=== PATIENT | male | born 1950 | race Caucasian/White ===

== ENCOUNTER 2021-05-24 11:24 | Inpatient (IN) | payer MEDICARE, BC ==
[~2021-05-24] VITALS: Ht 180.3 cm; Wt 103.5 kg
--- NOTE | 2021-05-24 15:40 | EKG ---
[facility] [address] [facility] [address] [place] [address] Signed Sinus rhythm with 1st degree AV block with premature atrial complexes Right bundle branch block Abnormal ECG No previous ECGs available Confirmed by GERALD ALSTON MD ([id number]) on 05/24/2021 3:39:39 PM Electronically Signed By: GERALD ALSTON MD 05/24/21 1540 PATIENT NAME: CINDI FONSECA Electrocardiogram DATE OF : 48 PHYSICIAN: GERALD ALSTON MD REPORT #: [id number] REPORT IS CONFIDENTIAL AND NOT TO BE RELEASED WITHOUT AUTHORIZATION
[2021-05-24] MEDS ORDERED: ATORVASTATIN CA40 MG PO (16:53)
[2021-05-24] MEDS ORDERED: ALLOPURINOL100 MG PO (16:53)
[2021-05-24] MEDS ORDERED: HYDRALAZINE HC100 MG PO (16:56)
[2021-05-24] MEDS ORDERED: ISOSORBIDE MONO30 MG PO (17:05)
[2021-05-24] MEDS ORDERED: LISINOPRIL5 MG PO (17:05)
[2021-05-24] MEDS ORDERED: INSULIN LI100 UNIT/2 SUB-Q (17:10)
[2021-05-24] MEDS ORDERED: LANTUS SOL100 UNIT/1 SUB-Q (17:11)
[2021-05-24] MEDS ORDERED: DOXYCYCLINE MO100 MG PO (17:13)
[2021-05-24] MEDS ORDERED: ALLERGY RELIEF10 M1 PO (17:13)
[2021-05-24] MEDS ORDERED: VITAMIN D325 MCG PO (17:19)
--- NOTE | 2021-05-24 18:42 | NUR ---
PATIENT ARRIVED FROM ED VIA STRETCHER. PATIENT IS WEAK AND UNABLE TO TRANSFER HIMSELF OVER. 4 RN IN TO ASSIST IN TRANSFER. PATIENT TRANSFERED AND REPOSITIONED FOR COMFORT. JAMAAL ROYAL STARTED IV IN RIGHT AC. PATIENT BREATH SOUNDS CLEAR. BOWEL TONES ACTIVE. PATIENT NOTED TO HAVE SEVERAL AREAS OF BULLOUS PEMPHIGOID ON RIGHT CHÁVEZ AND LEFT WRIST. PATIENT ALSO NOTED TO HAVE A SMALL EXCORIATED DIME SIZE AREA INBETWEEN GLUTEAL FOLDS. URINARY CATHETER IN PLACE. WILL MONITOR OUTPUT. MEDICATIONS GIVEN. PATIENT EATING DINNER. WILL CONTINUE TO CLOSELY MONITOR.
--- NOTE | 2021-05-24 19:46 | NUR ---
REPORT RECEIVED FROM SAURAV RN, WILL CONTINUE PLAN OF CARE.
--- NOTE | 2021-05-24 20:45 | NUR ---
PT SITTING UP IN BED AT THIS TIME ON ROOM AIR, IVF INFUSING AT ORDERED RATE. PT ALERT AND ORIENTED X 4 AND DENIES HAVING ANY YASMEEN AT THIS TIME. PT REPORTS MILD SHORTNESS OF BREATH AT THIS TIME, SPO2 100%. PT ASSESSMENT COMPLETED AT THIS TIME. PT HEART RATE REGULAR/DISTANT. LUNGS CLEAR IN UPPER LOBES AND CLEAR/DIMINISHED IN THE BASES BILATERALLY, BOWEL TONES ACTIVE. PT DENIES PAIN WHEN ABDOMEN IS PALPLATED, ABDOMEN SOFT. RADIAL PULSES STRONG, PEDAL PULSES +1, PT DENIES NUMBNESS OR TINGLING TO EXTREMITIES WITH THE EXCEPTION OF HIS PINKY FINGER WHICH HE STATES IS AT BASELINE. OPEN WOUND/BLISTER PRESENT ON PT'S RIGHT CHÁVEZ WHICH HE STATES IS FROM BULLOUS PEMPHEGOID, REDNESS ON LEFT WRIST WHICH PT STATES IS ALSO FROM THIS CONDITION (SEE CHART). AFTER ASSESSMENT PT REPORTS NO NEEDS. CBG ASSESSED AND WAS 172, 1 UNIT OF INSULIN ADMINISTERED PER SLIDING SCALE (SEE MAR). PT REPORTS NO FURTHER NEEDS AND STATES HE IS GOING TO SLEEP. PT NOW HAS HIS HOME CPAP ON, CALL LIGHT IN REACH, BED IN LOWEST POSITION, IVF INFUSING, WILL CONTINUE PLAN OF CARE.
--- NOTE | 2021-05-24 21:28 | NUR ---
PT LAYING IN BED AWAKE, HOME CPAP ON, SPO2 100%. PT ALERT AND ORIENTED AND REPORTS NO NEEDS. BLOOD PRESSURE CUFF READJUSTED AND VITALS TAKEN AT THIS TIME. PT DENIES ANY LIGHTHEADEDNESS OR DIZZYNESS WHEN ASKED. NO FURHTER NEEDS REPORTED, PT IN NO APPARENT DISTRESS, WILL CONTINUE PLAN OF CARE. CALL LIGHT IN REACH, BED IN LWOEST POSITION, IVF INFUSING ORDERED.
--- NOTE | 2021-05-24 22:10 | NUR ---
PT LAYING IN BED AWAKE ON HIS HOME CPAP, SPO2 100%. IVF INFUSING ORDERED. PT URINE OUTPUT ASSESSED FOR THE HOUR AND WAS 60ML CLEAR YELLOW URINE. PT BP REASSESSED RECORDED MAP WAS BELOW 65MMHG. BP 94/65 (76) PT DENIES LIGHTHEADEDNESS OR DIZZYNESS. PT REPORTS NO FURTHER NEEDS AT THIS TIME WHEN ASKED AND IS RESTING IN BED. CUSTOMER SERVICE REPRESENTATIVE TEACHER NOW IN ROOM TO DRAW 2200 LABS, WILL CONTINUE PLAN OF CARE. CALL LIGHT IN REACH, BED IN LOWEST POSITION.
--- NOTE | 2021-05-24 23:10 | NUR ---
PT LAYING IN BED AWAKE AND ALERT ON HIS HOME CPAP. SPO2 99%. IVF INFUSING ORDERED. AMAYA EMPTIED OF 48ML CLEAR YELLOW URINE FOR THE HOUR. PT REPORTS NO FURTHER NEEDS WHEN ASKED AND REMAINS RESTING IN BED. DR. ALSTON UPDATED AFTERWARDS ON PT'S VITALS AND URINE OUTPUT, WILL NOTIFY DR. ALSTON IF SYSTOLIC BLOOD PRESSURE FALLS BELOW 90 MMHG ORDERED. WILL CONTINUE PLAN OF CARE.
--- NOTE | 2021-05-25 00:15 | NUR ---
PT LAYING IN BED SLEEEPING AND AWOKE EASILY. IVF INFUSING ORDERED, PT ON HIS HOME CPAP. PT REQUESTED WARM BLANKETS WHICH WERE PROVIDED. VITALS THEN TAKEN AND ASSESSMENT COMPLETED (SEE CHART). PT REPORTS NO PAIN OR SHORTNESS OF BREATH WHEN ASKED AT THIS TIME. AMAYA BAG EMPTIED OF 49ML CLEAR YELLOW URINE FOR THE HOUR. PT REPORTS NO FURTHER NEEDS WHEN ASKED, WILL CONTINUE PLAN OF CARE. CALL LIGHT IN REACH, BED IN LOWEST POSITION.
--- NOTE | 2021-05-25 01:08 | NUR ---
IV PUMP ALARMING, PT LAYING IN BED SLEEPING ON HIS CPAP. IV PUMP RESTARTED, IVF INFUSING ORDERED. URINE OUTPUT 45ML FOR THE HOUR. PT AWOKE DURING THIS TIME AND REPORTED NO NEEDS WHEN ASKED. PT RETURNED BACK TO SLEEP. CALL LIGHT IN REACH, BED IN LOWEST POSITION, WILL CONTINUE PLAN OF CARE.
--- NOTE | 2021-05-25 02:06 | NUR ---
PT LAYING IN BED SLEEPING ON HIS CPAP. IVF INFUSING ORDERED. WHILE ASSESSING URINE OUTPUT PT AWOEK. 40ML OF CLEAR YELLOW URINE RECORDED FOR THE HOUR. PT REPORTS NO NEEDS AT THIS TIME AND DENIES LIGHTHEADEDNESS OR DIZZYNESS WHEN ASKED. PT RETURNED BACK TO SLEEP, CALL LIGHT IN REACH, BED IN LOWEST POSITON, WILL CONTINUE PLAN OF CARE.
--- NOTE | 2021-05-25 04:10 | NUR ---
PT LAYING IN BED AWAKE AND ALERT ON HIS CPAP. PT IVF INFUSING ORDERED. PT REPORTS NO PAIN, NO LIGHTHEADEDNESS, AND DENIES SHORTNESS OF BREATH. VITALS TAKEN AND PT ASSESSED (SEE CHART). PT LUNGS CLEAR IN UPPER LOBES, DIMINISHED IN THE BASES. HEART RATE IRREGULAR, ACTIVE BOWEL TONES PRESENT. +2 RADIAL PULSES AND +1 PEDAL. PT DENIES NUMBNESS OR TINGLING TO EXTREMITIES. PT AMAYA CHECKED AND HAD 35ML CLEAR YELLOW URINE. PT REPORTS NO FURTHER NEEDS WHEN ASKED AT THIS TIME, WILL CONTINUE PLAN OF CARE. CALL LIGHT IN REACH, BED IN LOWEST POSITION.
--- NOTE | 2021-05-25 06:25 | NUR ---
PT ALERT AND ORIENTED AT THIS TIME ON HIS HOME CPAP. IVF INFUSING ORDERED. PT UO FOR THE HOUR ASSESSED AND WAS 29ML CLEAR YELLOW URINE. PT REMOVED CPAP AT THIS TIME AND STATED HE NEEDED TO HAVE A BM. PT ASSISTED UP TO THE BEDSIDE COMMODE 1 PERSON ASSIST. HR NOTED TO INCREASE TO THE 120-130'S, PT STATED HE FELT WEAK AND LIGHTHEADED. PT ABLE TO HAVE A LIQUID BM AND WAS ASSISTED BACK TO THE BED. PT NOW RESTING IN BED AND REPORTS NO FURTHER NEEDS. PT IN BED AWAKE AND ALERT, CPAP AT THE BEDSIDE. CALL LIGHT IN REACH, BED IN LOWEST POSITION, IVF INFUSING ORDERED, WILL CONTINUE PLAN OF CARE.
--- NOTE | 2021-05-25 06:30 | NUR ---
DR. ALSTON NOTIFIED OF PT'S URINE OUTPUT, VITALS, AND PT'S INCREASED HEART RATE/LIGHTHEADNESS DURING EXERTION TO THE BEDSIDE COMMODE. NEW ORDERS GIVEN TO ADMINISTER 500ML OF NORMAL SALINE OVER 1 HOUR. WILL CONTINUE PLAN OF CARE.
--- NOTE | 2021-05-25 06:50 | NUR ---
PT LAYING IN BED AWAKE AND ALERT, IVF INFUSING ORDERED. NORMAL SALINE STARTED ORDERED (SEE MAR) AND NOW INFUSING. PT REPORTS NO NEEDS AT THIS TIME WHEN ASKED AND REMAINS RESTING IN BED. CALL LIGHT IN REACH, BED IN LOWEST POSITION, WILL CONTINUE PLAN OF CARE.
--- NOTE | 2021-05-25 08:30 | NUR ---
PATIENT AWAKE IN BED, VITALS AND I&OS CHARTED. EVELIN WITH P/T IN TO ASSIST WITH 2PA TRANSFER TO CHAIR FROM BED. PATIENT WAS "SHAKEY" BUT TOLERATED THE TRANSFER WELL. WARM BLANKET PROVIDED AND LINENS CHANGED. FACE AND HANDS WASHED AND PATIENT EATING BREAKFSAT AT THIS TIME. CALL LIGHTIN EASY REACH
--- NOTE | 2021-05-25 08:30 | NUR ---
Spoke with Luiz. He states he lives in a house without steps with his . He is weak and having difficulty walking following starting metho trexate. He would like to dc to home, but is unsure if this will be pos sible as he is having difficulty walking. He will work with PT. May need a walker, will check with PT.
--- NOTE | 2021-05-25 08:45 | NUR ---
PATIENT RESTING IN BED. PATIENT BREATH SOUNDS CLEAR. PATIENT WORE CPAP OVER NIGHT WITH NO ISSUES. BOWEL TONES ACTIVE. PATIENT DENIES N/V AT THIS TIME. PULSES ARE WEAK IN BILATERAL FEET AND DOPPLER USED FOR CONFIRMATION. PATIENTS SCAB ON CHÁVEZ WAS BLEEDING THIS AM AND COLLET GLUER PLACED A DRESSING. PATIENT IS ALERT AND PLEASANT. ALL QUESTIONS ANSWERED. WILL CONTINUE TO CLOSELY MONITOR.
--- NOTE | 2021-05-25 09:45 | NUR ---
PATIENT HAD AN EPISODE OF NAUSEA AND VOMITING. GAVE PRN DOSE OF ZOFRAN. PATIENT ATE APROX 50% OF MEAL PRIOR TO THIS. WILL CONTINUE TO CLOSELY MONITOR.
--- NOTE | 2021-05-25 10:00 | NUR ---
PT REQUESTS ASSISTANCE. BACK TO BED. THIS RN TO ROOM TO ASSIT. 2 PERSON ASSIST TO STAND AND PIVOT BACK TO BED. PT TREMBLES WHILE STANDING, IMPULSIVE AND STATES HE FEELS TOO WEAK. QUICK TO SIT BACK DOWN. PT ASSISTED INTO BED. NOTED THAT PTS URINE OUTPUT WAS ONLY 6ML OVER THE LAST HOUR. BICARB INFUSION COMPLETE. IV SALINE LOCKED AT THIS TIME. DR. ALSTON UPDATED REGARING URINE OUTPUT AND IV FLUIDS, AWAITING NEW ORDERS. NO ADDITIONAL REQUESTS OR COMPLAINTS AT THIS TIME. CALL LIGHT WITHIN REACH. BED RAILS UP. PTS PRIMARY RN UPDATED.
--- NOTE | 2021-05-25 10:17 | NUR ---
VITALS CHARTED. AMAYA EMPTIED-RN NOTIFIED OF LOW URINE OUTPUT. CALL LIGHT AND PERSONAL ITEMS IN EASY REACH
[2021-05-25] MEDS ORDERED: FOLIC ACID1 MG PO (10:20)
--- NOTE | 2021-05-25 10:20 | NUR ---
PATIENT URINE OUTPUT LOW. NEETA ROYAL UPDATED MD ALSTON. NO NEW ORDERS AT THIS TIME. MD WILL BE OVER TO ASSESS PATIENT FOR UPDATED PLAN OF CARE. WILL CONTINUE TO CLOSELY MONITOR.
[2021-05-25] MEDS ORDERED: METHOTREXATE2.5 MG PO (10:21)
[2021-05-25] MEDS ORDERED: BETAMETHASONE D15 G1 TOP (10:22)
[2021-05-25] MEDS ORDERED: PREDNISONE10 MG PO (10:23)
--- NOTE | 2021-05-25 11:19 | NUR ---
PATIENT IS BACK IN BED RESTING AT THIS TIME. PATIENT STATES NAUSEA IS BETTER WITH PRN ZOFRAN. WILL CONTINUE TO CLOSELY MONITOR.
--- NOTE | 2021-05-25 12:30 | NUR ---
MD ALSTON IN TO SEE PATIENT. MD ALSTON UNRINE OUTPUT. WILL STAT ANTHER 500ML BOLUS AND A BICARB GTT. ALL QUESTIONS ANSWERED. PATIENTS ASSESSMENT COMPLETED AND REMAINS UNCHANGED FROM PRIOR ASSESSMENT. NO OTHER NEEDS AT THIS TIME. PATIENT HAS POOR APPETITE AND TALKED WITH PATIENT ABOUT HAVING AN ENSURE WITH HIS DINNER. PATIENT DENIES NAUSEA. WILL CONTINUE TO CLOSELY MONITOR.
--- NOTE | 2021-05-25 13:30 | NUR ---
NEW IV STARTED BY STUDENT NURSE MIRNA. PATIENT TOELRATED WELL. PATIENT NOW RESTING AND PLANS TO TAKE A NAP AT THIS TIME. CPAP IN PLACE. WILL ENCOURAGE REST AT THIS TIME.
--- NOTE | 2021-05-25 13:42 | NUR ---
IV PUMP ALARMING, IV FLUID BOLUS COMPLETE. RIGHT AC IV FLUSHED AND SALINE LOCKED PER PROTOCOL. PT HAS CPAP IN PLACE AND CONTINUES TO REQUEST TIME TO REST. PT ENCOUARGED TO CONTINUE RESTING. AMAYA CATHETER EMPTIED. NO ADDITIONAL REQUESTS OR COMPLAINTS. PS PRIMARY RN UPDATED. CALL LIGHT WITHIN REACH. BED RAILS UP.
--- NOTE | 2021-05-25 16:24 | NUR ---
PATIENT RESTING IN BED. PATIENT WAS UP WITH PHYSICAL THERAPY AND TOLERATED WELL. PATIENT RESTING IN BED. PATIENT ASSESSMENT COMPLETED AND REMAINS UNCHANGED. WILL CONTINUE TO CLOSELY MONITOR.
[2021-05-25] MEDS ORDERED: VENTOLIN HFA18 GM INH (16:48)
--- NOTE | 2021-05-25 16:48 | NUR ---
MED REC COMPLETE
--- NOTE | 2021-05-25 18:00 | NUR ---
PATIENT UP WITH ELLIE ROYAL TO USE CAMMODE. PATIENT BACK TO BED AND TOLERATED WELL. MEDICATIONS DONE. PATIENT VISITING WITH THIS RN AND STATES "I AM FEELING MUCH BETTER THIS EVENING". WILL CONTINUE TO CLOSELY MONITOR.
--- NOTE | 2021-05-25 20:30 | NUR ---
RN NOTED PATIENT HAVING 3-5 SECOND RUNS OF RVR ON MONITOR. PATIENT RESTING IN BED EYES CLOSED. MD NOTIFIED. EKG ORDERED. RT CALLED BUT CURRENTLY UNAVAILABLE. THIS RN AND ALISA ROYAL CAPTURED AN EKG. ARRIVED AT BEDSIDE. 5 MG LOPRESSOR IV ADMINISTERED PER VERBAL ORDER. PATIENT DENIED PALPITATIONS OR OTHER COMPLAINS. BP STABLE. HIGHEST HR NOTED 148, DOWN TO 80'S A FIB. BP STABLE. ADD ON MAG ORDERED. PATIENT TO RECEIVE 3G MAG IV AND START 5 MG Q6H LOPRESSOR IV. PATIENT VERBALIZED UNDERSTANDING OF THIS EVENT.
--- NOTE | 2021-05-25 21:00 | NUR ---
PATIENT PROVIDED WITH SCHEDULED ALMA AND INSULIN PER SLIDING SCALE. PATIENT DENIES ANY CONCERNS. NO PAIN OR GI UPSET. IV SITES WNL, IV FLUIDS PER ORDER. AMAYA CARE DONE. SOME FLAKING SKIN NOTED AROUND THE HEAD OF THE PENIS. PATIENT REPORTS THIS IS NORMAL FOR HIM. NOT PAINFUL. OUTPUT IS QS. PATIENT HAS HOME CPAP IN PLACE. VS STABLE.
--- NOTE | 2021-05-26 00:14 | NUR ---
PATIENT CONTINUES TO HAVE SMALL RUNS OF RVR UP TO 130'S. RESTING HR 85-95 AFIB. PATIENT HAS WOKE ONCE AND BEEN MILDLY CONFUSED, THINKING HE WAS AT HOME. PATIENT EASILY REORIENTED AND CALM. VS STABLE. CPAP IN PLACE.
--- NOTE | 2021-05-26 03:50 | NUR ---
PATIENT UP TO BS FOR BM. SAMPLE COLLECTED. PATIENT TOLERATED WELL. TRANSFERED WITH MINIMAL ASSIST WITH FWW.
--- NOTE | 2021-05-26 06:36 | NUR ---
PATIENT AWAKE FOR THE DAY NOW. AMAYA EMPTIED. VS STABLE. IV FLUIDS PER ORDER, SITE WNL. PATIENT DENIED ANY CONCERNS. HR HAS BEEN MORE CONSISTENT IN 90-110 RANGE, AFIB WITH WIDE QRS.
--- NOTE | 2021-05-26 07:30 | NUR ---
PATIENT SHIFT REPORT RECIEVED FROM PROTOTYPE MODEL MAKER RN. PATIENT RESTING IN BED. REVIEWED PLAN OF CARE WITH PATIENT. NO QUESTIONS AT THIS TIME. WILL CONTINUE TO CLOSELY MONITOR.
--- NOTE | 2021-05-26 08:30 | NUR ---
STUDENT NURSE ELAYNE IN TO DO PATIENTS AM ASSESSMENT AT 0800. PATIENT IS RESTING IN BED AT THIS TIME. THIS RN IN TO FOLLOW-UP ASSESSMENT. PATIENTS BREATH SOUNDS ARE CLEAR, BOWEL TONES ACTIVE, PATIENT DENIES NAUSEA THIS MORNING. PATIENT HAD A BM DURING SLUDGE FILTRATION ATTENDANT AND A SAMPLE WAS SENT TO THE LAB. PATIENTS PULSES ARE STONG ON RADIALS AND DOPPLER ON PEDAL. BILATERAL LOWER EXTREMITY EDEMA. PATIENT HAS A AMAYA PRESENT WITH CLEAR YELLOW URINE. HELD MORNING IV METOPROLOL PER MDREDDY. MD ALSTON IN TO SEE PATIENT. WILL DC AMAYA CATHETER. FINSIH IV BICARB AND THEN SWITCH TO LR. SEE NEW ORDERS. WILL CONTINUE TO CLOSELY MONITOR.
--- NOTE | 2021-05-26 11:31 | NUR ---
REMOVED PATIENTS AMAYA PER MD MICHELLE ORDER. PATIENT TOELRATED WELL WITH NO ISSUES. PATIENTS IS AT THE BEDSIDE. PATIENT REMOVED HOME HEART MONITOR HE WAS WEARING AND THEY WILL PACKAGE IT AND PUT IT IN THE MAIL. NO FURTHER QUESTIONS AT THIS TIME. WILL CONTINUE TO CLOSELY MONITOR.
--- NOTE | 2021-05-26 12:30 | NUR ---
DENNY JIMENES IN VISITING WITH PT. WILL RETURN
--- NOTE | 2021-05-26 12:47 | NUR ---
PATIENT ASSISTED UP TO THE CAMMODE. PATIENT IS STRONGER TODAY AND A 1 PERSON ASSIST. PATIENT URINATED AND THEN BACK TO BED. WILL GET PATIENT A BEDBATH TODAY AFTER HE WORKS WITH PHYSICAL THERAPY. PATIENTS ASSESSMENT REMAINS UNCHENGED FROM PRIOR ASSESSMENT. WILL CONTINUE TO CLOSELY MONITOR.
--- NOTE | 2021-05-26 13:16 | EKG ---
[facility] [address] [place], [place] [address] Signed Atrial fibrillation with rapid ventricular response Right bundle branch block Abnormal ECG No previous ECGs available Confirmed by GERALD ALSTON MD ([id number]) on 05/26/2021 1:15:56 PM Electronically Signed By: GERALD ALSTON MD 05/26/21 1316 PATIENT NAME: CINDI FONSECA Electrocardiogram DATE OF : 48 PHYSICIAN: GERALD ALSTON MD REPORT #: [id number] REPORT IS CONFIDENTIAL AND NOT TO BE RELEASED WITHOUT AUTHORIZATION
--- NOTE | 2021-05-26 14:57 | NUR ---
REPORT RECEIVED FROM LELE VASQUEZ. AWAITING PTS ARRIVAL TO MED/SURG.
--- NOTE | 2021-05-26 15:00 | NUR ---
REPORT GIVEN TO NEETA ROYAL. UPDATED OF CURRENT PLAN OF CARE. PATIENT HAS VOIDED SINCE URINE CATHETER REMOVED. PATIENT UP AND WALKED WITH PHYSICAL THERAPY AND FEELS MUCH STRONGER TODAY. PATIENT IS ALERT AND ORIENTED WITH OCCASIONAL FORGET-FULLNESS. PATIENT WILL BE SENT ON HEART MONITOR FOR OBSERVATION OF NEW ONSET A.FIB RVR. PATIENT TO FINISH BAG OF BICAR IV THEN SWITCH TO LR ONCE BAG IS FINISIHED. PATIENT UPDATED ON PLAN AND NO FURTHER QUESTIONS AT THIS TIME.
--- NOTE | 2021-05-26 15:10 | NUR ---
PATIENT TRANSFERED TO THE MEDICAL UNIT FROM 110 WITH CHARGE NURSE LELE CAPPS. ALL BELONGINGS GATHERED AND SENT WITH PATIENT. NO OTHER NEEDS AT THIS TIME. UPDATED THAT PATIENT WOULD REALLY LIKE TO TAKE A SHOWER TODAY IF POSSIBLE.
--- NOTE | 2021-05-26 16:20 | NUR ---
PT FINISHED WITH SHOWER AND UP TO CHAIR. 1 PERSON STAND BY ASSIST WITH AMBULATION FROM SHOWER TO CHAIR. PT REPORTS 3/10 PAIN IN HIS RIGHT LEG AND LEFT HAND WOUND FROM SKIN DISEASE. PT DENIES NEED FOR PAIN MEDICATION. PT DENIES OTHER PAINS AND DENIES NAUSEA. PT ALERT AND OREINTED. LUNG SOUNDS CLEAR. IRREGULAR HEART RYTHEM CONTINUES WITH AFIB RYTHEM NOTED ON TELEMETRY MONTIORING, HEART RATE IN THE 70'S. BOWEL TONES ACTIVE. MONITORING KIDNEY FUNCTION LABS, PT VOIDING QUANITY SUFFICENT. ALLEVYN TO RIGHT CHÁVEZ CHANGED BY LELE CAPPS AFTER SHOWER, C/D/I AT THIS TIME. SCAB TO LEFT HAND REMAINS INTACT, PT REPORTS THIS WOULD "SHOULD HEAL UP FINE." PT DECLINES BANDAGE TO LEFT HAND. NO DRAINAGE NOTED. PT DENIES ADDITIONAL REQUESTS OR COMPLAINTS. CALL LIGHT WITHIN REACH. PT REMAINS UP TO CHAIR.
--- NOTE | 2021-05-26 17:20 | NUR ---
THIS RN TO ROOM TO CHECK ON PT. PT REMAINS UP TO CHAIR, EATING DINNER. MEDICATIONS GIVEN. PT DENIES ADDITIONAL REQUESTS OR COMPLAINTS. CALL LIGHT WITHIN REACH BED RAILS UP.
--- NOTE | 2021-05-26 17:49 | NUR ---
PT TRANSFERED FROM CCU THIS SHIFT, HERE FOR MARIPOSA. PT UP WITH 1 PERSON STAND BY ASSIST TO SHOWER AND CHAIR THIS SHIFT. PT TOELRTING 60G CARB DIET WITH BLOOD SUGAR CHECKS AT MEALS AND HS, SLIDING SCALE INSULIN GIVEN. TELEMETRY MONITORING IN PLACE AFIB RVR WAS DETECTED LAST NIGHT. MONITOR SHOWS AFIB RYTHEM WITH HR IN THE 70'S THIS SHIFT. DIARRHEA CONTINUES, SAMPLE SENT TO LAB WHILE PT WAS IN CCU. FOELY CATHETER DC'D THIS SHIFT, PT VOIDING QUANTITY SUFFICIENT. CPAP USED WHILE PT IS RESTING/SLEEPING. DRESSING TO RIGHT CHÁVEZ WOUND/SKIN DISEASE CHANGED AFTER SHOWER THIS SHIFT. PT USES CALL LIGHT AND MAKES NEEDS KNOWN.
--- NOTE | 2021-05-26 18:25 | NUR ---
THIS RN TO ROOM TO CHECK ON PT. PT UP TO CHAIR. PT DENIES PAIN AND NAUSEA. VITAL SIGNS STABLE. PT DENIES REQUESTS OR COMPLAINTS AT THIS TIME BUT STATES TO "TELL THE DOCTOR I'M FEELING A MILLION TIMES BETTER." CALL LIGHT WITHIN REACH.
--- NOTE | 2021-05-26 19:15 | NUR ---
SHIFT REPORT RECEIVED FROM SAURAV SANTACRUZ AT BEDSIDE. pt AWAKE AND RESTING IN CHAIR. IV FLUIDS INFUSING DIRECTED, IV SITE REMAINS WNL. pt DENIES NEEDS OR CONCERNS, CALL LIGHT IN REACH AND BOARD UPDATED.
--- NOTE | 2021-05-26 20:02 | NUR ---
CLARIFIED FLUIDS ORDERS WITH DR GARRISON VIA TELEPHONE. TELEPHONE ORDER READ BACK AND CLARIFIED THAT pt IS TO RECEIVE LR AT THE ORDERED 75MLS/HR- CONTINUOUSLY.
--- NOTE | 2021-05-26 20:19 | NUR ---
PT UNPLUGGED IV AND WALKED OVER TO DOOR, ENTERED ROOM AND PT STATES HE IS GOING TO BED AND JUST TRYING TO TURN THE LIGHTS OFF. PT STATES HE IS STEADY ON HIS FEET AND DENIES DIZZINESS. WATCHED PT GET IN BED AND PROVIDED WARM BLANKETS FOR HIM. CALL LIGHT IS CLOSE AND PT DENIES FURTHER NEEDS. IV IS INFUSING FINE.
--- NOTE | 2021-05-26 21:25 | NUR ---
ASSISTED PT BACK TO BED FROM RESTROOM. PT STATES HE HAD TO GO URGENTLY AND BARELY MADE IT. HE DENIES FURTHER NEEDS. CALL LIGHT IS CLOSE.
--- NOTE | 2021-05-26 22:40 | NUR ---
ASSESSMENT COMPLETE, SCHEDULED MEDS GIVEN (SEE EMAR). pt A/OX4, BUT HAS SOME GENERALIZED WEAKNESS. BED ALARM TO ENSURE SAFETY, EDUCATION PROVIDED. pt VERBALIZED UNDERSTANDING. IV SITES X2 BOTH WNL. IV BICARB COMPLETE, LR NOW INFUSING DIRECTED. pt DENIES PAIN AND NAUSEA, BOWEL TONES ACTIVE. NO ADDITIONAL NEEDS, CALL LIGHT IN REACH.
--- NOTE | 2021-05-26 23:06 | NUR ---
CALL LIGHT ANSWERED, pt UP TO VOID- SBA WITH AMBULATION. pt VOIDED 300MLS LIGHT YELLOW URINE. pt BACK IN BED WITH BED ALARM ON FOR SAFETY. pt THEN STATES, "HAS SHE BEEN CALLING OUT 121 FOR ABOUT AN HOUR", pt POINTING AT HALINA BONILLA AT RN STATION. pt EDUCATION HIS ROOM IS NEAR RN STATION AND STAFF ARE CARING FOR pts AND ANSWERING CALL LIGHTS. ORINETATION ASSESSED, pt REMAINS ORIENTED TO SELF, PLACE, DATE, AND TIME. WILL MONITOR. CALL LIGHT IN REACH.
--- NOTE | 2021-05-27 01:35 | NUR ---
PT CALLED FOR ASSISTANCE TO RESTROOM, SBA TO RESTROOM AND BACK TO BED. PT DENIES FURTHER NEEDS. CALL LIGHT IS CLOSE AND BED ALARM IS ON.
--- NOTE | 2021-05-27 02:09 | NUR ---
ROUNDED ON pt, pt RESTING IN BED WITH HOME CPAP MACHINE IN PLACE. RR EVEN AND UNLABORED, NO DISTRESS NOTED. TELE#[address], HR WNL-60'S. AFIB. BED ALARM ON AND CALL LIGHT IN REACH. IV SITE WNL, FLUIDS INFUSING DIRECTED.
--- NOTE | 2021-05-27 03:57 | NUR ---
pt CONTINUES TO REST IN BED, EYES CLOSED. RR EVEN AND UNLABORED. HOME CPAP MACHINE IN PLACE. BED ALARM ON AND CALL LIGHT IN REACH. IV FLUIDS CONTINUE TO INFUSE DIRECTED. TELE#[address], AFIB- HR WNL 60'S.
--- NOTE | 2021-05-27 05:30 | NUR ---
CALL LIGHT ANSWERED, pt VERBALIZES NEED TO VOID. UPON ASSESSING pt INCONTINENT OF URINE. pt CLEANED SELF AND WAS ASSISTD WITH DRY ATTENDS. pt BACK TO BED. NO CHANGES TO ASSESSMENT, IV SITE REMAISN WNL. FLUIDS INFUSING DIRECTED. BED ALARM ON FOR SAFETY. CALL LIGHT IN REACH AND FRESH WATER PROVIDED. VSS AND I&O'S BOTH COMPLETED.
--- NOTE | 2021-05-27 07:30 | NUR ---
BEDSIDE REPORT FROM NIGHT RN, ASSUMED ALL CARE OF PT., RESTING IN BED, EYES CLOSED, RESPIRATIONS EVEN, CPAP IN PLACE, TOLERATING WELL
--- NOTE | 2021-05-27 08:09 | NUR ---
PATIENT UP TO BATHROOM AND THEN TO CHAIR, SBA. LINENS CHANGED. BLANKET GIVEN. CALL LIGHT IN REACH. NO FURTHER NEEDS AT THIS TIME.
--- NOTE | 2021-05-27 09:22 | NUR ---
PT. OOB IN CHAIR EATING BREAKFAST, DENIES ANY COMPLAINTS, STATES HE FEELS BACK TO HIS NORMAL. LABS NOT WNL AT THIS TIME. IVF INFUSING AT 75 CC HR. GOOD INTAKE AND OUTPUT, BG UNDER GOOD CONTROL. INDEPENDENT IN THE ROOM AND WILL DO HIS OWN MORNING CARE.
--- NOTE | 2021-05-27 10:01 | NUR ---
OOB IN CHAIR, READING THE NEWSPAPER. IVF INFUSING, SBA TO THE BATHROOM, PT. NEEDED NO ASSISTANCE, STEADY ON HIS FEET AND NO DIZZINESS OR WEAKNESS. GOOD APPETITE AND ADEQUATE FLUID INTAKE. 300 YELLOW URINE OUT.
--- NOTE | 2021-05-27 10:41 | NUR ---
PATIENT SITTING UP IN CHAIR. VITALS AND I&O'S CHARTED. FRESH WATER AND COFFEE GIVEN. CALL LIGHT IN REACH. NO FURTHER NEEDS AT THIS TIME.
--- NOTE | 2021-05-27 11:46 | NUR ---
OOB IN CHAIR, WALKED IN THE HALLS WITH PT INDEPENDENTLY WITH FWW. IVF INFUSING, NO ISSUES, NO COMPLAINTS.
--- NOTE | 2021-05-27 16:45 | NUR ---
RN REQUESTING ASSISTANCE, THIS SCIENCE TECHNICIANS IN TO HELP RN. WHEN ENTERING ROOM, PATIENT WAS ON KNEES IN BATHROOM IN FRONT OF TOILET. THIS SCIENCE TECHNICIANS ASKED MISCELLANEOUS MACHINE OPERATOR TO ASSIST. GAIT BELT PLACED ON PATIENT. THIS SCIENCE TECHNICIANS, LELE LAZO AND CHARGE NURSE LUL ASSISTED IN GETTING PATIENT UP. RADIAL ROUTER OPERATOR BROUGHT CHAIR INTO BATHROOM AND PATIENT WENT FROM STANDING TO SITTING IN CHAIR. SMALL SMEAR OF BLOOD FOUND ON FLOOR AND LARGE SKIN TEAR FOUND ON PATIENTS LEFT KNEE. PATIENT WHEELED OUT OF BATHROOM. VITALS AND BLOOD SUGAR IMMEDIATLY TAKEN. RN AND CHARGE NURSE STILL IN ROOM AT THIS TIME.
--- NOTE | 2021-05-27 18:32 | NUR ---
PATIENT SITTING IN CHAIR WATCHING TV. I&O'S CHARTED. CHAIR ALARM ON. CALL LIGHT IN REACH. NO FURTHER NEEDS AT THIS TIME.
--- NOTE | 2021-05-27 18:47 | NUR ---
PT. CALLED AND RN ENTERED BR WHERE PT. WAS HOLDING ONTO THE RAIL AND ON HIS KNEES. HE STATED THAT HE COULD NOT GET UP, SEVERAL STAFF MEMBERS ASSISTED PT. TO HIS FEET AND HE STOOD AND WAS ABLE TO BEAR WEIGHT ON HIS B LE. STATES HE WAS LOWERING HIMSELF TO THE COMMODE WHEN HIS FOOT SLIPPED (FLOOR WAS DRY) BACKWARD AND HE LOWERED HIMSELF TO HIS KNEES. HE USED THE CALL ENGLE TO CALL FOR ASSIST. RECLINER CHAIR WAS BROUGHT IN AND PT. THEN SAT BACK IN CHAIR FROM STANDING. COMPLETE ASSESSMENT WAS DONE, SKIN TEAR TO LEFT KNEE. DENIES NEED FOR PAIN MED, SKIN IS FRAGILE, THIN AND EASY TO TEAR SECONDARY TO BULLOUS PEMPHIGOID. DR. GARRISON ON FLOOR AND WAS ADVISED AND VISITED PT. IN ROOM.
--- NOTE | 2021-05-27 19:00 | NUR ---
SHIFT REPORT RECEIVED FROM DAYSHIFT RN CL[place]ON AT BEDSIDE. pt AWAKE AND RESTING IN CHAIR. CALL LIGHT AND PERSONAL BELONGINGS IN REACH. NONADHERENT DRESSING WITH EDDIE WRAP TO LEFT KNEE D/T SKIN TEAR WHICH OCCURED EARLIER ON . ALLEVYN TO RIGHT KNEE C/D/I. NO FURTHER NEEDS, CALL LIGHT IN REACH.
--- NOTE | 2021-05-27 20:17 | NUR ---
PT CALLED TO REQUEST TO RETURN TO BED AT THIS TIME, THIS RN INTO PT ROOM, PT STANDBY ASSIST WITH FWW, HE HAS STEADY GAIT. PT INTO BED, BLANKETS ARRANGED, BELONGING BROUGHT TO BEDSIDE TABLE. LIGHTS OFF PER PT REQUEST, PT SAID HE HAS NO OTHER NEEDS AT THIS TIME. CALL LIGHT IN REACH, BED ALARM ON FOR PT SAFETY.
--- NOTE | 2021-05-27 20:40 | NUR ---
PT CALLED TO REQUEST TO BE CHANGED HE SAID HE SPILLED HIS URINAL IN BED, CHAD MEADE INTO PT ROOM TO ASSIST WITH CHANGING AT THIS TIME. CHAD MEADE REMAINED IN ROOM TO ORGANIZE BELONGINGS AT BEDSIDE.
--- NOTE | 2021-05-27 22:36 | NUR ---
ASSESSMENT COMPLETE, SCHEDLED MEDS GIVEN (SEE EMAR). ALLEVYN REMAINS IN PLACE TO RIGHT CHÁVEZ AND RIGHT FOREARM, NO CHANGES TO APPEARANCE. ALSO NO CHANGES TO NONADHERENT DRESSING W/ EDDIE WRAP TO LEFT KNEE. STRONG PEDAL PULSES. pt DENIES PAIN AND NAUSEA. IV SITES X2 WNL, NEW BAG IV FLUIDS INFUSING DIRECTED. BED ALARM ON AND CALL LIGHT IN REACH. HOME CPAP MACHINE ALSO IN PLACE.
--- NOTE | 2021-05-28 00:41 | NUR ---
ROUNDED ON pt, pt AWAKE AND RESTING IN BED. HOME CPAP MACHINE IN PLACE, RR EVEN AND UNLABORED. IV SITE REMAISN WNL, FLUIDS INFUSING DIRECTED.
--- NOTE | 2021-05-28 02:34 | NUR ---
ROUNDED ON pt, ASSESSMENT COMPLETE. NO ACUTE CHANGES. IV FLUIDS CONTINUE TO INFUSE DIRECTED, IV SITE WNL. BED ALARM ON AND CALL LIGHT IN REACH. URINAL ALSO EMPTIED AND BOARD UPDATED. pt DENEIS NEEDS OR CONCERNS, WILL MONITOR.
--- NOTE | 2021-05-28 04:54 | NUR ---
in to get pt cleaned up, vs done, no further needs
--- NOTE | 2021-05-28 05:09 | NUR ---
VSS AND I&O'S COMPLETE. FRESH WATER GIVEN. HOME CPAP MACHINE IN PLACE. BED ALARM ON AND CALL LIGHT IN REACH. NO FURTHER NEEDS.
--- NOTE | 2021-05-28 07:08 | NUR ---
REPORT RECEVIED FROM LELE SHEPARD. PT RESTING IN BED, CPAP IN PLACE. PT AWAKE. PT DENIES REQUESTS OR COMPLAINTS AT THIS TIME. CALL LIGHT WITHIN REACH. BED RAILS UP. BED ALARM ON.
--- NOTE | 2021-05-28 08:20 | NUR ---
MORNING ASSESSMENT AND MEDICATION DUE. PT UP TO CHAIR, FINISHED WITH BREAKFAST. PT DENIES PAIN AND NAUSEA. IV'S ASSESSED, WNL. NO S/S OF PHLEBITIS NOTED, IV TO RIGHT FORARM INFUSING IV FLUIDS. IV TO RIGHT AC SALINE LOCKED, ALCOHOL CAP APPLIED. PT ALERT AND OREINTED TO ALL. LUNG SOUNDS CLEAR. HEAR TONES REMAIN IRREGULAR, MORE REGULAR TODAY THAN TWO DAYS AGO. CMS INTACT. PT REPORTS FEELING "STRONGER TODAY. JUST WAITING FOR PHYSICAL THERAPY AND I HOPE TO GO HOME." DRESSING TO RIGHT LOWER LEG SHOWS SMALL AMOUNT OF SEROUS ANGUINOUS DRAINAGE/SHADOWING. DRESSING LEFT IN PLACE AT THIS TIME. DRESSING TO LEFT KNEE LOOSE, OLD NON ADHEANT GAUZE REMOVED. WOUND IMPROVING, MINIMAL DRAINAGE NOTED. MEASUREMENTS UNCHANGED. NEW NONADHEANT GAUZE APPLIED, WITH EDDIE WRAP TO SECURE DRESSING. PT TOELRATES DRESSING CHANGE WITHOUT NEED FOR PAIN MEDICATION. DRESSING TO RIGHT FORARM REMAINS IN PLACE OVER WOUND. UNABLE TO VISUALIZE WOUND, SCANT AMOUNT OF SEROUS ANGUINOUS SHADOWING NOTED ON DRESSING. PT REPORTS "IT WAS ONE OF THOSE DARK SPOTS THAT JUST BROKE OPEN. PT VOIDING QUANITITY SUFFICIENT, DENEIS ANY PAIN AND FREQUENCY. PT REPORTS URGENCY WITH VOIDING. PT DENIES ADDITIONAL REQUESTS OR COMPLAINTS. CALL LIGHT WITHIN REACH. PT REMAINS UP TO CHAIR.
--- NOTE | 2021-05-28 08:48 | NUR ---
THIS RN TO ROOM WITH DR. GARRISON FOR ROUNDS. PT VERBALIZES UNDERSTANDING OF STATUS AND PLAN FOR DISCHARGE. PT REPORTS HIS QUESTIONS HAVE BEEN ANSWERED.
--- NOTE | 2021-05-28 09:24 | NUR ---
PT CALL LIGHT ON. PT REQUESTS ASSISTANCE UP TO RESTROOM. 1 PERSON STAND BY ASSIST UP TO RESTROOM. PT STEADY ON FEET. IV SALINE LOCKED PT HAS DISCHARGE ORDERS AND FOR EASE OF MOMEMENT ABOUT THE ROOM. PT HAS MODERATE BOWEL MOVEMENT. PT PERFORMS SELF LATOYA CARE. STAND BY ASSIST BACK TO CHAIR. CALL LIGHT WITHIN REACH. NO ADDITIONAL REQUESTS OR COMPLAINTS.
--- NOTE | 2021-05-28 10:09 | NUR ---
PT READY FOR DISCHARGE. IVs DC'D PER PROTOCOL, GAUZE AND COBAN APPLIED. VITAL SIGNS STABLE. DISCHRAGE INSTRUCTIONS REVIEWED WITH PT. PT VERBALIZES UNDERSTANDING OF INSTRUCTIONS, MEDICATIONS AND FOLLOW UP AND STATES HIS QUESTIONS HAVE BEEN ANSWERED. PHARMACIST TO BEDSIDE TO REVIEW MEDICATIONS IN DETAIL WITH PT. PT VERBALIZES UNDERSTANDING AND STATES HIS QUESTIONS HAVE BEEN ANSWERED. PT WAITING FOR HIS TO ARRIVE WITH CLOTHING. NO ADDITIONAL NEEDS AT THIS TIME. PT REMAINS UP TO CHAIR. CALL LIGHT WITHIN REACH.
--- NOTE | 2021-05-28 11:02 | NUR ---
PTS ARRIVED WITH PTS CLOTHES. OTTO UPDATED ON PT STATUS AND DISCHARGE INSTRUCTIONS. PT DRESSES WITH STAND BY ASSIST FROM . PT WHEELED FROM MED/SURG WITH ALL BELONGINGS. NO ADDITIONAL REQUESTS OR CONCERNS.
== END 2021-05-28 11:10 | disposition home or self-care (01) | DRG 683 ==
LOC: ED 11:24 → CCU 16:32 → MS 05-26 15:23
PROVIDERS: ADMIT Internal Medicine; ATTEND Internal Medicine
DX: N17.9 Acute kidney failure, unspecified (principal); E87.2 Acidosis; L12.0 Bullous pemphigoid; Z20.822 Contact with and (suspected) exposure to COVID-19; Z66 Do not resuscitate; E87.5 Hyperkalemia; R11.2 Nausea with vomiting, unspecified; R19.7 Diarrhea, unspecified; I48.0 Paroxysmal atrial fibrillation; T45.1X5A Adverse effect of antineoplastic and immunosuppressive drugs, initial encounter; I25.10 Atherosclerotic heart disease of native coronary artery without angina pectoris; D63.1 Anemia in chronic kidney disease; I12.9 Hypertensive chronic kidney disease with stage 1 through stage 4 chronic kidney disease, or unspecified chronic kidney disease; N18.4 Chronic kidney disease, stage 4 (severe); E11.22 Type 2 diabetes mellitus with diabetic chronic kidney disease; L98.8 Other specified disorders of the skin and subcutaneous tissue; G47.33 Obstructive sleep apnea (adult) (pediatric); E78.5 Hyperlipidemia, unspecified; Z88.0 Allergy status to penicillin; Z79.4 Long term (current) use of insulin; Z79.899 Other long term (current) drug therapy
CPT/HCPCS: 36415; 36600; 51702; 71045; 76770; 80048; 80053; 81001; 82553; 82570; 82728; 83036; 83550; 83735; 84300; 84550; 85025; 85060; 93005; 93010; 94660; 97161; 97165; 97530; 99285-25; C9803; J1815; J2405; J3475; J7030; J7040; J7121; J7512; U0003

== ENCOUNTER 2021-08-25 19:26 | Emergency (ER) | payer MEDICARE, BC ==
[~2021-08-25] VITALS: Ht 180.3 cm; Wt 93.9 kg
[~2021-08-25 19:26] MED LIST: ALLERGY RELIEF10 M1 PO; ALLOPURINOL100 MG PO; ATORVASTATIN CA40 MG PO; BETAMETHASONE D15 G1 TOP; DOXYCYCLINE MO100 MG PO; FOLIC ACID1 MG PO; HYDRALAZINE HC100 MG PO; INSULIN LI100 UNIT/2 SUB-Q; ISOSORBIDE MONO30 MG PO; LANTUS SOL100 UNIT/1 SUB-Q; LISINOPRIL5 MG PO; METHOTREXATE2.5 MG PO; PREDNISONE10 MG PO; VENTOLIN HFA18 GM INH; VITAMIN D325 MCG PO
[2021-08-25] MEDS ORDERED: HUMALOG100 UNIT/2 SUB-Q (19:42)
[2021-08-25] MEDS ORDERED: ELIQUIS5 MG PO (19:43)
[2021-08-25] MEDS ORDERED: FARXIGA5 MG PO (19:43)
[2021-08-25] MEDS ORDERED: METOPROLOL SUCC50 MG PO (19:43)
--- NOTE | 2021-08-25 20:25 | EKG ---
[facility] [address] [place] [address] Signed Sinus rhythm with 1st degree AV block with premature atrial complexes Right bundle branch block Cannot rule out Inferior infarct , age undetermined Abnormal ECG When compared with ECG of 25-MAY-2021 19:07, Sinus rhythm has replaced Atrial fibrillation Confirmed by PAVITHRA GARRISON MD ([id number]) on 08/25/2021 8:25:13 PM Electronically Signed By: PAVITHRA GARRISON MD 08/25/212024 PATIENT NAME: CINDI FONSECA Electrocardiogram DATE OF : 48 PHYSICIAN: PAVITHRA GARRISON MD REPORT #: [id number] REPORT IS CONFIDENTIAL AND NOT TO BE RELEASED WITHOUT AUTHORIZATION
== END 2021-08-26 00:47 | disposition home or self-care (01) ==
LOC: ED 19:26
DX: E86.0 Dehydration (principal); I13.0 Hypertensive heart and chronic kidney disease with heart failure and stage 1 through stage 4 chronic kidney disease, or unspecified chronic kidney disease; N18.9 Chronic kidney disease, unspecified; I50.9 Heart failure, unspecified; I44.0 Atrioventricular block, first degree; I49.1 Atrial premature depolarization; I48.91 Unspecified atrial fibrillation; Z88.0 Allergy status to penicillin; Z79.01 Long term (current) use of anticoagulants; Z79.899 Other long term (current) drug therapy
CPT/HCPCS: 36415; 70450; 80053; 83735; 84484; 85025; 93005; 93010; J7121

== ENCOUNTER 2022-01-29 12:14 | Emergency (ER) | payer MEDICARE, BC ==
[~2022-01-29] VITALS: Ht 180.3 cm; Wt 92.1 kg
[~2022-01-29 12:14] MED LIST changes: +ELIQUIS5 MG PO; +FARXIGA5 MG PO; +HUMALOG100 UNIT/2 SUB-Q; +METOPROLOL SUCC50 MG PO; +ONDANSETRON ODT8 MG PO
[2022-01-29] MEDS ORDERED: ACETAZOLAMIDE250 MG PO (16:27)
== END 2022-01-29 16:36 | disposition home or self-care (01) ==
LOC: ED 12:14
DX: G93.2 Benign intracranial hypertension (principal); I13.0 Hypertensive heart and chronic kidney disease with heart failure and stage 1 through stage 4 chronic kidney disease, or unspecified chronic kidney disease; I50.9 Heart failure, unspecified; N18.9 Chronic kidney disease, unspecified; I48.91 Unspecified atrial fibrillation; E11.22 Type 2 diabetes mellitus with diabetic chronic kidney disease; M10.9 Gout, unspecified; Z88.8 Allergy status to other drugs, medicaments and biological substances; Z88.0 Allergy status to penicillin; Z79.899 Other long term (current) drug therapy; Z79.4 Long term (current) use of insulin; Z79.01 Long term (current) use of anticoagulants
CPT/HCPCS: 36415; 70544; 70551; 80053; 81001; 85025; 85651; 86140; 99284-25

== ENCOUNTER 2022-04-24 13:31 | Inpatient (IN) | payer MEDICARE, BC ==
[~2022-04-24] VITALS: Ht 180.3 cm; Wt 90.2 kg
[~2022-04-24 13:31] MED LIST changes: +ACETAZOLAMIDE250 MG PO
[2022-04-24] MEDS ORDERED: TORSEMIDE10 MG PO (13:58)
[2022-04-24] MEDS ORDERED: NIFEDIPINE ER60 M1 PO (13:59)
[2022-04-24] MEDS ORDERED: MYCOPHENOLATE500 MG PO (13:59)
[2022-04-24] MEDS ORDERED: PACERONE100 MG PO (13:59)
[2022-04-24] MEDS ORDERED: PANTOPRAZOLE SO40 MG PO (13:59)
[2022-04-27] MEDS ORDERED: NIFEDIPINE ER60 M1 PO (12:06)
[2022-04-27] MEDS ORDERED: TORSEMIDE10 MG PO (12:07)
--- NOTE | 2022-04-27 16:11 | EKG ---
[facility] [address] [facility] [place] [address] Signed Atrial fibrillation Right bundle branch block Septal infarct , age undetermined Abnormal ECG When compared with ECG of 30-AUG-2021 17:09, Atrial fibrillation has replaced Sinus rhythm Septal infarct is now present Borderline criteria for Inferior infarct are no longer present Nonspecific T wave abnormality, worse in Inferior leads Confirmed by GERALD ALSTON MD ([id number]) on 04/27/2022 4:10:42 PM Electronically Signed By: GERALD ALSTON MD 04/27/22 1611 PATIENT NAME: CINDI FONSECA Electrocardiogram DATE OF : 48 PHYSICIAN: GERALD ALSTON MD REPORT #: [id number] REPORT IS CONFIDENTIAL AND NOT TO BE RELEASED WITHOUT AUTHORIZATION
== END 2022-04-27 13:15 | disposition home or self-care (01) | DRG 291 ==
LOC: ED 13:31 → CCU 18:38 → MS 18:38 → CCU 04-25 04:40 → MS 04-25 15:20
PROVIDERS: ADMIT Internal Medicine; ATTEND Internal Medicine
DX: I13.0 Hypertensive heart and chronic kidney disease with heart failure and stage 1 through stage 4 chronic kidney disease, or unspecified chronic kidney disease (principal); I50.31 Acute diastolic (congestive) heart failure; J96.01 Acute respiratory failure with hypoxia; N18.4 Chronic kidney disease, stage 4 (severe); L12.0 Bullous pemphigoid; Z20.822 Contact with and (suspected) exposure to COVID-19; Z66 Do not resuscitate; M10.9 Gout, unspecified; I48.0 Paroxysmal atrial fibrillation; E11.22 Type 2 diabetes mellitus with diabetic chronic kidney disease; G47.33 Obstructive sleep apnea (adult) (pediatric); E79.0 Hyperuricemia without signs of inflammatory arthritis and tophaceous disease; K21.9 Gastro-esophageal reflux disease without esophagitis; E78.5 Hyperlipidemia, unspecified; Z98.890 Other specified postprocedural states; Z88.0 Allergy status to penicillin; Z88.8 Allergy status to other drugs, medicaments and biological substances; Z79.4 Long term (current) use of insulin; Z79.899 Other long term (current) drug therapy
CPT/HCPCS: 36415; 71045; 71046; 71250; 80048; 80053; 82803; 83036; 83605; 83735; 83880; 84484; 85025; 87040; 87502; 93005; 93010; 94660; 94760; 94761; 97162; J1815; J1940; U0003

== ENCOUNTER 2023-08-29 13:53 | Emergency (ER) | payer MEDICARE, BC ==
[~2023-08-29] VITALS: Ht 180.3 cm; Wt 85.0 kg
[~2023-08-29 13:53] MED LIST changes: +MYCOPHENOLATE500 MG PO; +NIFEDIPINE ER60 M1 PO; +PACERONE100 MG PO; +PANTOPRAZOLE SO40 MG PO; +TORSEMIDE10 MG PO
[2023-08-29 14:15] LABS: BASOPHILS 1.2 % (0-2); EOSINOPHILS 5.7 % (0-6); HEMATOCRIT 42.3 % (35.0-50.0); HEMOGLOBIN 13.9 g/dL (12.0-18.0); LYMPHOCYTES 25.8 % (24-44); MCH 32.7 (27-36); MCHC 32.8 g/dl (30-36); MCV 99.8 fl (81-99); MONOCYTES 11.7 % (0-12); NEUTROPHILS 55.6 % (39-80); PLATELET COUNT 147 K/uL (140-440); RBC 4.23 M/ul (4.3-5.7); RDW 18.2 (10.5-15.0)
[2023-08-29 14:34] LABS: ALBUMIN 3.1 g/dL (3.4-5.0); ALBUMIN/GLOBULIN RATIO 0.78 (1.1-2.4); ALCOHOL, MEDICAL <3 ng/dL (<3); ALKALINE PHOSPHATASE 274 U/L (46-116); ALT (SGPT) 21 U/L (14-59); ANION GAP 20.4 (7-21); AST (SGOT) 14 U/L (15-37); BILIRUBIN, TOTAL 0.5 ng/dL (0.2-1.0); CALCIUM 7.1 mg/dL (8.5-10.1); CARBON DIOXIDE 22 mmol/L (21-32); CHLORIDE 96 mmol/L (98-107); POTASSIUM 3.4 mmol/L (3.5-5.1); PROTEIN, TOTAL 7.1 g/dL (6.4-8.2)
[2023-08-29 14:44] LABS: CREATININE, SERUM 12.49 mg/dL (0.70-1.30); GLOMERULAR FILTRATION RATE,EST 4 mL/min (>60); UREA NITROGEN 70 mg/dL (7-18)
[2023-08-29 14:53] LABS: ABO O; ANTIBODY SCREEN NEGATIVE; RH NEGATIVE
[2023-08-29] MEDS ORDERED: SODIUM CHLORIDE 0.9% 500 ML IV PRN (15:30)
[2023-08-29 16:26] VITALS: BP 90/64
== END 2023-08-29 16:35 | disposition home or self-care (01) ==
LOC: ED 13:53
PROVIDERS: Emergency Medicine
DX: S01.111A Laceration without foreign body of right eyelid and periocular area, initial encounter (principal); S00.31XA Abrasion of nose, initial encounter; W19.XXXA Unspecified fall, initial encounter; I13.2 Hypertensive heart and chronic kidney disease with heart failure and with stage 5 chronic kidney disease, or end stage renal disease; E11.22 Type 2 diabetes mellitus with diabetic chronic kidney disease; I50.9 Heart failure, unspecified; N18.6 End stage renal disease; I48.91 Unspecified atrial fibrillation; I95.9 Hypotension, unspecified; Z79.01 Long term (current) use of anticoagulants; Z79.4 Long term (current) use of insulin; Z79.899 Other long term (current) drug therapy; Z88.0 Allergy status to penicillin; Z88.8 Allergy status to other drugs, medicaments and biological substances
CPT/HCPCS: 36415; 70450; 80053; 85025; 86850; 86900; 86901; G0480; J7040

== ENCOUNTER 2023-10-22 20:26 | Emergency (ER) | payer MEDICARE, BC ==
[~2023-10-22] VITALS: Ht 180.3 cm; Wt 86.0 kg
[2023-10-22] MEDS ORDERED: CALCIUM CARBON600 MG PO (20:41)
[2023-10-22] MEDS ORDERED: CALCITRIOL0.25 MCG PO (20:42)
[2023-10-22 20:49] LABS: BASOPHILS 0.5 % (0-2); EOSINOPHILS 0.6 % (0-6); HEMATOCRIT 43.1 % (35.0-50.0); HEMOGLOBIN 13.9 g/dL (12.0-18.0); LYMPHOCYTES 5.9 % (24-44); MCH 31.8 (27-36); MCHC 32.3 g/dl (30-36); MCV 98.6 fl (81-99); MONOCYTES 2.7 % (0-12); NEUTROPHILS 90.3 % (39-80); PLATELET COUNT 253 K/uL (140-440); RBC 4.38 M/ul (4.3-5.7); RDW 16.6 (10.5-15.0)
[2023-10-22 21:07] LABS: ALBUMIN 1.9 g/dL (3.4-5.0); ALBUMIN/GLOBULIN RATIO 0.35 (1.1-2.4); ANION GAP 16.1 (7-21); BILIRUBIN, TOTAL 0.5 ng/dL (0.2-1.0); BUN/CREATININE RATIO 6.78 (6.0-28.6); CREATININE, SERUM 7.81 mg/dL (0.70-1.30); MAGNESIUM 1.5 mg/dL (1.8-2.4); POTASSIUM 3.1 mmol/L (3.5-5.1); PROTEIN, TOTAL 7.3 g/dL (6.4-8.2)
[2023-10-22] MEDS ORDERED: CEFTRIAXONE/SODIUM CHLORIDE 2 GM/100 ML PIGGYBACK IV ONE (21:45)
[2023-10-22 22:03] LABS: LACTIC ACID, BLOOD 1.9 mmol/L (0.4-2.0)
[2023-10-23] MEDS ORDERED: POTASSIUM CHLORIDE 10 MEQ TABCR PO ONE (00:30)
[2023-10-23 00:40] LABS: APPEARANCE, BODY FLUID TURBID
[2023-10-23 00:45] LABS: PMNS, BODY FLUID 98; SOURCE, BODY FLUID Pertitoneal catheter
[2023-10-23] MEDS ORDERED: MAGNESIUM OXIDE 400 MG TABLET PO ONE (00:45)
[2023-10-23 00:46] LABS: MONONUCLEAR CELLS, BODY FLUID 2
[2023-10-23] MEDS ORDERED: VANCOMYCIN HCL/D5W 1 GM/270 ML PIGGYBACK KIT IV ONE (01:00)
[2023-10-23] MEDS ORDERED: LACTATED RINGER'S 1,000 ML IV ONE (02:30)
[2023-10-23 05:02] VITALS: BP 88/56
[2023-10-23 15:34] LABS: WBC, BODY FLUID 9500
[2023-10-23 15:35] LABS: RBC, BODY FLUID 188
--- NOTE | 2023-10-23 21:35 | EKG ---
[facility] [address] [facility] [place] [address] Signed Sinus rhythm with 1st degree AV block Left axis deviation Right bundle branch block Abnormal ECG When compared with ECG of 24-APR-2022 13:39, Sinus rhythm has replaced Atrial fibrillation QRS axis shifted left Criteria for Septal infarct are no longer present Nonspecific T wave abnormality, improved in Lateral leads Confirmed by Pedro Luis Bryant MD () on 10/23/2023 9:35:29 PM Electronically Signed By: PEDRO LUIS BRYANT MD 10/23/23 2135 PATIENT NAME: CINDI FONSECA Electrocardiogram DATE OF : 48 PHYSICIAN: PEDRO LUIS BRYANT MD REPORT #: [id number] REPORT IS CONFIDENTIAL AND NOT TO BE RELEASED WITHOUT AUTHORIZATION
== END 2023-10-23 05:00 | disposition home or self-care (01) ==
LOC: ED 20:26
PROVIDERS: Internal Medicine
DX: K65.2 Spontaneous bacterial peritonitis (principal); B96.89 Other specified bacterial agents as the cause of diseases classified elsewhere; E86.0 Dehydration; E87.6 Hypokalemia; E83.42 Hypomagnesemia; I13.2 Hypertensive heart and chronic kidney disease with heart failure and with stage 5 chronic kidney disease, or end stage renal disease; E11.22 Type 2 diabetes mellitus with diabetic chronic kidney disease; N18.6 End stage renal disease; I50.9 Heart failure, unspecified; I48.91 Unspecified atrial fibrillation; M10.9 Gout, unspecified; Z99.2 Dependence on renal dialysis; Z88.0 Allergy status to penicillin; Z88.8 Allergy status to other drugs, medicaments and biological substances; Z79.4 Long term (current) use of insulin; Z79.01 Long term (current) use of anticoagulants; Z79.899 Other long term (current) drug therapy
CPT/HCPCS: 36415; 74176; 80053; 83605; 83735; 84484; 85025; 85060; 87040; 87070; 87075; 87205; 89051; 93005; 93010; 96365; 96367; 99284-25; A9270; J0696; J3370; J7121

== ENCOUNTER 2024-04-23 12:02 | Emergency (ER) | payer MEDICARE, BC ==
[~2024-04-23] VITALS: Ht 180.3 cm; Wt 91.0 kg
[~2024-04-23 12:02] MED LIST changes: +CALCITRIOL0.25 MCG PO; +CALCIUM CARBON600 MG PO
[2024-04-23] MEDS ORDERED: MIDODRINE HCL10 MG PO (12:41)
[2024-04-23] MEDS ORDERED: MYCOPHENOLATE500 MG PO (12:41)
[2024-04-23] MEDS ORDERED: POTASSIUM CHLO20 ME1 PO (12:41)
[2024-04-23] MEDS ORDERED: SEMGLEE (Y100 UNIT/2 SUB-Q (12:41)
[2024-04-23] MEDS ORDERED: ISOSORBIDE MONO30 MG PO (12:42)
[2024-04-23 13:09] LABS: EOSINOPHILS 1.4 % (0-6); HEMATOCRIT 30.8 % (35.0-50.0); HEMOGLOBIN 10.1 g/dL (12.0-18.0); LYMPHOCYTES 9.1 % (24-44); MCH 32.5 (27-36); MCHC 32.8 g/dl (30-36); MCV 99.2 fl (81-99); MONOCYTES 6.5 % (0-12); PLATELET COUNT 228 K/uL (140-440); RDW 15.1 (10.5-15.0)
[2024-04-23 13:23] LABS: ALBUMIN 2.5 g/dL (3.4-5.0); ALBUMIN/GLOBULIN RATIO 0.6 (1.1-2.4); ANION GAP 16.4 (7-21); BILIRUBIN, TOTAL 0.3 mg/dL (0.2-1.0); BUN/CREATININE RATIO 6.11 (6.0-28.6); CALCIUM 9.3 mg/dL (8.5-10.1); CREATININE, SERUM 8.99 mg/dL (0.70-1.30); POTASSIUM 3.4 mmol/L (3.5-5.1); PROTEIN, TOTAL 6.7 g/dL (6.4-8.2)
[2024-04-23] MEDS ORDERED: metroNIDAZOLE 250 MG TAB PO ONE (18:30)
[2024-04-23] MEDS ORDERED: CIPROFLOXACIN 500 MG TAB PO ONE (18:30)
[2024-04-23] MEDS ORDERED: CIPRO500 MG PO (18:50)
[2024-04-23] MEDS ORDERED: METRONIDAZOLE500 MG PO (18:50)
[2024-04-23 19:12] VITALS: BP 131/63
== END 2024-04-23 19:24 | disposition home or self-care (01) ==
LOC: ED 12:02
PROVIDERS: Emergency Medicine
DX: R10.32 Left lower quadrant pain (principal); I13.0 Hypertensive heart and chronic kidney disease with heart failure and stage 1 through stage 4 chronic kidney disease, or unspecified chronic kidney disease; E11.22 Type 2 diabetes mellitus with diabetic chronic kidney disease; N18.9 Chronic kidney disease, unspecified; I50.9 Heart failure, unspecified; I48.91 Unspecified atrial fibrillation; Z88.0 Allergy status to penicillin; Z88.8 Allergy status to other drugs, medicaments and biological substances; Z79.899 Other long term (current) drug therapy; Z79.4 Long term (current) use of insulin; Z79.01 Long term (current) use of anticoagulants
CPT/HCPCS: 36415; 74176; 80053; 85025; 99284-25

== ENCOUNTER 2024-11-05 18:12 | Emergency (ER) | payer MEDICARE, BC ==
[~2024-11-05] VITALS: Ht 180.3 cm; Wt 117.0 kg
[~2024-11-05 18:12] MED LIST changes: +CIPRO500 MG PO; +METRONIDAZOLE500 MG PO; +MIDODRINE HCL10 MG PO; +POTASSIUM CHLO20 ME1 PO; +SEMGLEE (Y100 UNIT/2 SUB-Q
[2024-11-05 21:15] VITALS: BP 000/00
== END 2024-11-05 20:30 ==
LOC: ED 18:12
DX: I46.9 Cardiac arrest, cause unspecified (principal); I13.2 Hypertensive heart and chronic kidney disease with heart failure and with stage 5 chronic kidney disease, or end stage renal disease; E11.22 Type 2 diabetes mellitus with diabetic chronic kidney disease; N18.6 End stage renal disease; I50.9 Heart failure, unspecified; I48.91 Unspecified atrial fibrillation; Z88.8 Allergy status to other drugs, medicaments and biological substances; Z88.0 Allergy status to penicillin; Z79.4 Long term (current) use of insulin; Z79.01 Long term (current) use of anticoagulants; Z79.899 Other long term (current) drug therapy
CPT/HCPCS: 94799; 99285